=== PATIENT | female | born 1955 | race Caucasian/White ===

== ENCOUNTER 2017-10-09 17:19 | Emergency (ER) | payer BC ==
--- NOTE | 2017-10-09 18:00 | ERNOTE ---
Back Pain ER HPI Presenting Symptoms: other Time Seen by Provider: 10/09/17 17:31 Source: patient Exam Limitations: no limitations Immunizations: IMMUNIZATION HX Immunizations Up to Date No History of Influenza Vaccine Yes Hx Pneumococcal Vaccination Yes Allergies/Adverse Reactions: Allergies acetaminophen [From Percocet] Adverse Reaction (Intermediate, Verified 10/09/17 17:26) Nausea oxycodone HCl [From Percocet] Adverse Reaction (Intermediate, Verified 10/09/17 17:26) Nausea Home Medications: HOME MEDICATIONS metroNIDAZOLE [Flagyl] 250 mg PO BID 07/08/15 [Last Taken Unknown] traMADol HCL [Ultram] 50 mg PO QID PRN 07/08/15 [Last Taken 07/08/15] Nitrofurantoin/Nitrofuran Mac [Macrobid] 100 mg PO Q12H #14 cap 10/09/17 [Last Taken Unknown] Narrative: Patient started to have left flank pain about five days ago. She has chronic back pain but it usually hurt on the right side. She denies any new injury. no radiation of the pain, pain worse with movement and certain position, no change in pain. Intermittent pain in the epigastric area, not now Timing: Reports: intermittent Quality/Severity: Reports: moderate Location of pain: Reports: lower back Activities at Onset: Reports: none Recent Injury?: Reports: no Modifying Factors - (Improves): Reports: nothing Modifying Factors - (Worsens): Reports: movement to left Associated Symptoms: Denies: fever/chills, sweating, problems urinating, difficulty walking Prior Treament: Reports: similar symptoms before - usually on the right. Denies : recently seen Review of Systems - Review of Systems Constitutional: Absent: recent illness, fever ENT: Absent: nose congestion, sore throat Respiratory: Absent: shortness of breath Cardiology: Absent: chest pain Gastrointestinal/Abdominal: Present: See HPI, abdominal pain. Absent: nausea, vomiting, diarrhea, constipation Genitourinary: Present: no symptoms reported Musculoskeletal: Present: See HPI, back pain Neurological: Absent: weakness, numbness - Patient's Past Medical History Patient History - Medical: Chronic Pain, Kidney stone, Obesity Patient History - Cardiac/Respiratory: No pertinent hx Patient History - Cancer: No Hx of Cancer Patient History - Surgical Procedures: Cholecystectomy, , Gastric Bypass, Total Knee Replacement, Other Patient History - Other: None - Family History Mother Family History - Cardiac/Respiratory: Hypertension Father Family History - Medical: Family History - Cardiac/Respiratory: Cardiomyopathy, Hypertension - Social History Living Situations: home Abuse History: No History of abuse Psych History: No pertinent hx - Immunizations Immunizations Up to Date: No Hx Pneumococcal Vaccination: Yes History of Influenza Vaccine: Yes Physical Exam - Physical Exam General Appearance: Present: wd/wn, alert, no apparent distress, obese Neck: Present: normal inspection, nontender, supple, full range of motion Respiratory: Present: no respiratory distress, normal breath sounds, no accessory muscle use, lungs clear Cardiovascular/Chest: Present: regular rate, rhythm, no murmur Gastrointestinal/Abdominal: Present: normal bowel sounds, nondistended, soft, tenderness - mild epigastric Back Exam: Present: normal inspection, no vertebral tenderness, other - tender left lower ribs posterior Neurological Exam: Present: alert, oriented, normal mood/affect, no motor/ sensory deficits Skin Exam: Present: normal color, warm/dry ED Progress - Results and Orders Patient's Lab Results:: I have reviewed the patient's lab results. - Vital Signs Patient's Vital Signs:: I have reviewed the patient's vital signs. Vital Signs: Vital Signs 10/09/17 17:22 Temperature 36.7 C Pulse Rate 80 Respiratory 16 Rate Blood Pressure 158/98 O2 Sat by Pulse 98 Oximetry - X-Ray X-Ray #1 X-Ray: abdomen - fecal retention without obstruction Interpretation: Reviewed by me - Progress/Reassessment Chief Complaint: Back Pain Progress Note-Subjective: 10/09/17 20:00 discussed test results Departure Clinical Impression: UTI (urinary tract infection) Qualifiers: Urinary tract infection type: acute cystitis Hematuria presence: without hematuria Qualified Code(s): N30.00 - Acute cystitis without hematuria Constipation Qualifiers: Constipation type: unspecified constipation type Qualified Code(s): K59.00 - Constipation, unspecified - Departure Disposition: Home self-care Condition: Good Instructions: Constipation, Adult, [id number], Urinary Tract Infection, Adult , [id number] Additional Instructions: call your doctor for follow up Referrals: Ellie Jiang MD [Primary Care Provider] - Prescriptions: Nitrofurantoin/Nitrofuran Mac [Macrobid] 100 mg PO Q12H #14 cap
[2017-10-09 18:15] LABS: Hematocrit 40.8 % (37.0-47.0); Hemoglobin 13.1 gm/dL (12.5-16.0); Mean Cell Volume 92.7 fl (78-100); Mean Corpuscular Hemoglobin 29.8 pg (27-31); Mean Corpuscular Hgb Conc 32.1 g/dl (32-36); Mean Platelet Volume 10.5 fl (6.0-9.5); Neutrophil # 6.6 K/mm3 (1.3-6.0); Neutrophil % 77.4 % (42-75.0); Platelet Count 260 K/mm3 (150-450); Red Cell Distribution Width 13.2 % (11.5-14.0); White Blood Count 8.5 K/mm3 (4.0-10.5)
[2017-10-09 18:28] LABS: Albumin * 3.4 gm/dl (3.4-5.0); Anion Gap 10.2 mmol/L (6.8-13.8); BUN/Creatinine Ratio 15.3 (9.0-21.6); Bilirubin, Total 0.4 mg/dL (0.0-1.1); Ca. Corrected For Albumin 9.8 mg/dL (8.4-10.2); Calcium * 9.6 mg/dL (7.9-10.9); Carbon Dioxide 32.7 mmol/L (24-32.6); Potassium 3.9 mmol/L (3.4-4.6); Total Protein 8.2 gm/dL (6.2-8.2)
[2017-10-09 19:26] LABS: Urine Bilirubin Negative (NEGATIVE); Urine Ketone Negative (NEGATIVE); Urine Nitrite Negative (NEGATIVE); Urine Protein Negative (NEGATIVE); Urine Specific Gravity 1.015 SP.GR. (1.005-1.010); Urine Urobilinogen Normal (NORMAL)
[2017-10-09 19:50] LABS: Urine Appearance Clear; Urine Blood 5 /ul (NEGATIVE); Urine Color Yellow
[2017-10-09 19:51] LABS: Urine Bacteria 2+; Urine RBC 0-5 /hpf (0-5)
[2017-10-09] MEDS ORDERED: NITROFURANTOIN/NITROFURAN MAC 100 MG CAPSULE PO ONE (20:01)
[2017-10-09] MEDS ORDERED: NITROFURANTOIN/NITROFURAN MAC 100 MG CAPSULE ONE (20:11)
[2017-10-09 20:27] VITALS: BP 158/78
== END 2017-10-09 20:20 | disposition home or self-care (01) ==
LOC: ER 17:19
DX: N30.00 Acute cystitis without hematuria (principal); K59.00 Constipation, unspecified; Z87.442 Personal history of urinary calculi

== ENCOUNTER 2018-11-05 13:41 | Inpatient (IN) ==
[~2018-11-05 13:41] MED LIST: RINGER'S SOLUTION,LACTATED 1,000 ML IV PRN; VANCOMYCIN HCL 1 GM in DEXTROSE 5 % IN WATER 250 ML IV PRN
--- NOTE | 2018-11-05 19:12 | ANES ---
Anesthesia Pre Procedure Eval Vitals/Labs: Last Vital Signs Temp 38.6 C H 11/05/18 16:55 Pulse 122 H 11/05/18 16:55 Resp 20 11/05/18 16:55 BP 140/76 11/05/18 16:55 HOME MEDICATIONS apixaban 5 mg tablet 5 mg PO .COMPLEX #60 tab 08/11/18 [Last Taken 11/05/18 08:30] diltiazem CD 240 mg capsule,extended release 24 hr 240 mg PO DAILY #30 cap 08/11/18 [Last Taken 11/05/18 08:30] furosemide 40 mg tablet 40 mg PO DAILY #30 tab 08/11/18 [Last Taken 11/05/18 08:30] levothyroxine 50 mcg tablet 50 mcg PO DAILY #90 tab 08/19/18 [Last Taken 11/05/18 08:30] metoprolol tartrate 25 mg tablet 25 mg PO BID 09/10/18 [Last Taken 11/05/18 08:30] hydrocodone 7.5 mg-acetaminophen 325 mg tablet 1 tab PO .Q4-6H PRN #30 tab 10/20/18 [Last Taken 11/05/18 11:00] metroNIDAZOLE [Metronidazole] 250 mg PO TID 10/30/18 [Last Taken 10/29/18] Allergies/Adverse Reactions: Allergies Allergy/AdvReac Type Severity Reaction Status Date / Time hydromorphone [From Dilaudid] Allergy Severe Unknown, Verified 11/05/18 17:16 see note oxycodone HCl [From Percocet] AdvReac Mild Nausea Verified 11/05/18 17:16 - Planned Procedure Planned Procedure: rt shoulder arthroscopy I&D Medication List Reviewed:: Yes Allergies Verified: Yes Medical History (Last Reviewed 11/05/18 @ 19:09 by Antony Avila CRNA) Trigger thumb, right thumb (Acute) Onset Date: Unknown Shoulder pain, right (Acute) Onset Date: Unknown Heart murmur, systolic (Chronic) Onset Date: Unknown Cardiomyopathy (Chronic) Onset Date: Unknown Fatigue (Chronic) Onset Date: Unknown Edema (Chronic) Onset Date: Unknown Atrial fibrillation with RVR (Acute) Onset Date: Unknown Hypertension Hypothyroid Lives with spouse No history of alcohol use Non-tobacco user Wears glasses small bowel bacterial infection Surgical History (Last Reviewed 11/05/18 @ 19:09 by Antony Avila CRNA) History of total right knee replacement Onset Date: ~2010 [facility] Hx of appendectomy Onset Date: ~1981 Hx of section Onset Date: ~1976 2- 1981 Hx of cholecystectomy Onset Date: ~1983 [facility] Hx of gastric bypass Onset Date: 2002 [facility] Hx of hernia repair Onset Date: ~2003 [facility] Family History (Last Reviewed 11/05/18 @ 19:09 by Antony Avila CRNA) Father , at 65 Heart disease Cancer Mother Hypertension Brother Diabetes Heart disease Daughter Hypothyroidism Son Alive and well - Family Anesthesia History Family History:: no untoward family reactions to anesthesia, no familial bleeding tendencies, no family history of clotting disorders, no family history of premature - Airway/Neck/Teeth Within Normal Limits:: Yes Teeth Condition: intact Mallampatti Score: 2 Thyromental (T-M) distance: > 6 cm Mandibulo Hyoid distance: > 3 cm - Respiratory Respiratory Physical: lungs clear Smoking Status: Never smoker Discussed smoking cessation including day of surgery: No Sleep Apnea currently treated: No Sleep Apnea by current assessment: No Discussed Risks/Treatment of RUTH: No - Cardiovascular Tolerate Activity: Fair Heart Sounds: S1 & S2, Regular - Anesthesia Assessment and Plan ASA Class: PS, III, E Anesthesia Type Plan: General LMA
[2018-11-05] MEDS: PIPERACILLIN SODIUM/TAZOBACTAM 3.375 GM in DEXTROSE 5 % IN WATER 100 ML IV SCH ×2 (20:00)
[2018-11-05] MEDS ORDERED: BUPIVACAINE HCL 50 ML VIAL IJ ONE (20:37)
[2018-11-05] MEDS ORDERED: ONDANSETRON HCL/PF 2 MG/ML VIAL IV PRN (20:46)
[2018-11-05] MEDS ORDERED: RINGER'S SOLUTION,LACTATED 1,000 ML IV PRN (20:46)
[2018-11-05] MEDS ORDERED: diphenhydrAMINE HCL 50 MG/ML VIAL IV PRN (20:46)
[2018-11-05] MEDS ORDERED: MAG HYDROX/ALUMINUM HYD/SIMETH 30 ML UDC PO PRN (20:46)
[2018-11-05] MEDS ORDERED: MAGNESIUM HYDROXIDE 30 ML UDC PO PRN (20:46)
[2018-11-05] MEDS ORDERED: ACETAMINOPHEN 500 MG TABLET PO PRN (20:46)
[2018-11-05] MEDS ORDERED: MORPHINE SULFATE 4 MG/ML SYRG IV PRN (20:46)
[2018-11-05] MEDS ORDERED: ZOLPIDEM TARTRATE 5 MG TABLET PO PRN (20:46)
--- NOTE | 2018-11-05 20:53 | POSTOP NO ---
Date of Surgery: 11/05/18 Patient Tolerated the Procedure: Well Post Operative Diagnosis/Procedures: Alumni Relations Manager: Adán Heath PA-C Post-operative Diagnosis: Septic joint right shoulder Finding: Above Procedure: Arthroscopic Irrigation and debridement right shoulder, labral debridement right shoulder Estimated Blood Loss: Minimal Specimens: None
[2018-11-05] MEDS ORDERED: PIPERACILLIN SODIUM/TAZOBACTAM 3.375 GM in DEXTROSE 5 % IN WATER 100 ML IV SCH ×2 (21:00)
--- NOTE | 2018-11-05 21:02 | ANES ---
Post Anesthesia Discharge - Transfer of Care Transfer of Care handoff given to nurse: Yes - Discharge from PACU Discharge from PACU when meets criteria: Yes - Discharge to ASU Discharge to ASU-no complications/pt stable: Yes
--- NOTE | 2018-11-05 21:08 | ANES ---
Post Anesthesia Assessment - Vital Signs Vitals: Last Vital Signs Temp 37.5 C 11/05/18 21:02 Pulse 128 H 11/05/18 21:02 Resp 24 H 11/05/18 21:02 BP 156/114 H 11/05/18 21:02 Pulse Ox 100 11/05/18 21:02 Airway Patency: Normal - Mental Status Level Of Consciousness: Awake - Pain Level Pain Score: 0 - N/V Assessment Nausea/Vomiting Presence: None Dehydration:: No
[2018-11-05] MEDS: SENNOSIDES/DOCUSATE SODIUM 1 TAB TABLET PO SCH (23:13)
[2018-11-05] MEDS: METOPROLOL TARTRATE 25 MG TABLET PO SCH (23:13)
[2018-11-05] MEDS: HYDROcodone/ACETAMINOPHEN 1 EACH TABLET PO PRN (23:14)
[2018-11-06] MEDS: PIPERACILLIN SODIUM/TAZOBACTAM 3.375 GM in DEXTROSE 5 % IN WATER 100 ML IV SCH ×6 (01:35→17:52)
[2018-11-06] MEDS: HYDROcodone/ACETAMINOPHEN 1 EACH TABLET PO PRN ×3 (05:30→21:49)
[2018-11-06 05:31] LABS: Hematocrit 32.5 % (37.0-47.0); Hemoglobin 10.2 gm/dL (12.5-16.0); Mean Cell Volume 96.4 fl (78-100); Mean Corpuscular Hemoglobin 30.3 pg (27-31); Mean Corpuscular Hgb Conc 31.4 g/dl (32-36); Mean Platelet Volume 10.6 fl (8-12.5); Platelet Count 262 K/mm3 (150-450); Red Blood Count 3.37 M/mm3 (4.2-5.4); Red Cell Distribution Width 15.5 % (11.5-14.0); White Blood Count 14.5 K/mm3 (4.0-10.5)
[2018-11-06 05:40] LABS: Anion Gap 10.8 mmol/L (6.8-13.8); BUN/Creatinine Ratio 16.2 (9.0-21.6); Calcium * 8.7 mg/dL (7.9-10.9); Carbon Dioxide 33.1 mmol/L (24-32.6); Estimated Creat Clear 59.4; Potassium 3.9 mmol/L (3.4-4.6)
[2018-11-06] MEDS: LEVOTHYROXINE SODIUM 50 MCG TABLET PO SCH (06:52)
[2018-11-06] MEDS ORDERED: VANCOMYCIN HCL 1 GM in DEXTROSE 5 % IN WATER 250 ML IV SCH ×2 (07:30)
[2018-11-06] MEDS ORDERED: MORPHINE SULFATE 2 MG/ML DISP.SYRIN IV PRN (08:00)
[2018-11-06] MEDS: APIXABAN 5 MG TABLET PO SCH ×2 (08:34→20:03)
[2018-11-06] MEDS: DILTIAZEM HCL 240 MG CAP.SR.24H PO SCH (08:34)
[2018-11-06] MEDS: FUROSEMIDE 40 MG TABLET PO SCH (08:34)
[2018-11-06] MEDS: METOPROLOL TARTRATE 25 MG TABLET PO SCH ×2 (08:34→17:49)
[2018-11-06] MEDS ORDERED: VANCOMYCIN HCL 1.75 GM in DEXTROSE 5 % IN WATER 500 ML IV ONE ×2 (09:00)
--- NOTE | 2018-11-06 10:01 | OR ---
Operative Report - Dictated Report Narrative: Date: 11/05/2018 Physician: Zia Sow M.D. Loan Inspector: Adán Heath PA-C (provided an essential set of skilled, educated hands which assisted with transfer, positioning, prepping, draping, manipulation, retraction, placement of implants, irrigation, closure of wounds, and application of dressings all of which cannot be performed by the available surgical crew) Preoperative diagnosis: Septic right shoulder Postoperative diagnosis: Septic right Shoulder with degenerative labral tear Procedure: Right shoulder arthroscopy with irrigation debridement, labral debridement Anesthesia: General plus local Complications: None Estimated blood loss: Minimal Specimens: None Retained implants: None Drains: Medium Hemovac 1 Indications: Mrs. Daniel Is a 63 year-old female who has been followed in my clinic with complaints of shoulder pain consistent concern for septic arthrosis based on aspirate. Physical exam and aspirate were consistent with her complaints and concern for infection. The risks, benefits, and alternatives were discussed in clinic. The risks being , bleeding, infection, blood clots, nerve, tendon, ligament, blood vessel injury, persistent pain, arthrosis, stiffness, need for prolonged therapy, need for additional procedures, and persistent symptoms. Consent was obtained in the clinic. Procedure: After marking the correct extremity in the preoperative holding area, a timeout was performed in the operating room. IV antibiotics consisting of vancomycin and Zosyn prophylactically as we had already obtained a culture were administered prior to the procedure. A general anesthetic was induced by the nurse molecular modeler per my request. This was in the supine position, then the patient was transitioned to a beachchair position with all bony prominences well-padded, head in neutral, the nonoperative arm well supported, and the legs padded with SCDs in place. The operative shoulder was then prepped and draped in a standard sterile fashion. After marking out the bony landmarks, saline was infused into the joint through a posterior lateral portal site. A trevon incision was made, and the blunt trocar and cannula was introduced into the shoulder joint. An accessory portal was placed in the rotator cuff interval using a spinal needle for guidance. Upon initial evaluation, the biceps tendon showed significant tendinopathy and near complete tear. The middle glenohumeral ligament was intact. Subscapularis tendon was intact. The glenoid showed mild degenerative change. The humeral head articular surface showed mild degenerative change. The anterior labrum was frayed. The superior labrum was frayed. The pouch was unremarkable. The posterior labrum was unremarkable. The supraspinatus tendon was partially torn. The infraspinatus tendon was intact. Utilizing a shaver the joint was thoroughly irrigated. There was noted synovial inflammation and a partial labral and synovial debridement was performed. The biceps tendon was debrided. A total of 18 L was placed through the shoulder. A medium Hemovac was placed into the joint securing it to the skin through the anterior portal. Attention was then turned to the subacromial space. Subacromial bursectomy was performed utilizing the prior portals. The coracoacromial ligament was intact. The bursal side of the rotator cuff demonstrated no appreciable pathology. The acromial arch was unremarkable. There do not appear to be any sign of infection in the subacromial space and 3 L of irrigant were passed. The wounds were then thoroughly irrigated. The portal sites were closed with interrupted nylon. Dressings consisting of Xeroform, 4 x 4, ABD, and tape were applied. All sponge, needle, blade, and instrument counts were correct prior to closing the wounds. The patient was awoken and transferred to the postanesthesia care unit in stable condition.
--- NOTE | 2018-11-06 11:47 | PN ---
Subjective - Date and Time Seen Date: 11/06/18 Time: 11:45 Subjective Narrative: She reports her pain is significantly improved. No other significant concerns. She is sitting in the chair with the drain in place with her IV infusing her antibiotics. She denies any numbness or tingling or difficulty sleeping. Denies any nausea or vomiting. Objective - Vitals Vitals: Last Vital Signs Temp 36.9 C 11/06/18 10:20 Pulse 72 11/06/18 10:20 Resp 16 11/06/18 10:20 BP 111/64 11/06/18 10:20 Pulse Ox 95 11/06/18 10:20 - Abnormal Lab Findings Abnormal Lab Findings: Abnormal Lab Results 11/06/18 11/06/18 Range/Units 05:28 05:28 WBC 14.5 H (4.0-10.5) K/mm3 RBC 3.37 L (4.2-5.4) M/mm3 Hgb 10.2 L (12.5-16.0) gm/dL Hct 32.5 L (37.0-47.0) % MCHC 31.4 L (32-36) g/dl RDW 15.5 H (11.5-14.0) % Carbon Dioxide 33.1 H (24-32.6) mmol/L Random Glucose 171 H (70-110) mg/dL - Exam Exam Narrative: Right upper extremity: Dressings dry, drain in place draining bloody fluid, neurovascular intact throughout the right upper extremity to motor and sensation Constitutional: Present: Alert, Oriented x3 Assessment/Plan - Problems/Diagnosis (1) Septic joint of right shoulder region Problem: Acute Qualifiers: Septic arthritis organism: due to unspecified organism Qualified Code(s): M00.9 - Pyogenic arthritis, unspecified Narrative: We are awaiting cultures. She is placed on prophylactic vancomycin and Zosyn. Her white count is improved some the day. Plan is to transition to targeted antibiotics and discharge once cultures are final. (2) Atrial fibrillation with RVR Problem: Chronic (3) Urolithiasis Problem: Chronic (4) Cardiomyopathy Problem: Chronic Qualifiers: (5) Fatigue Problem: Chronic Qualifiers: (6) Heart murmur, systolic Problem: Chronic
[2018-11-06] MEDS: SENNOSIDES/DOCUSATE SODIUM 1 TAB TABLET PO SCH (20:03)
[2018-11-06] MEDS: VANCOMYCIN HCL 1 GM in DEXTROSE 5 % IN WATER 250 ML IV SCH ×2 (21:54)
[2018-11-07] MEDS: PIPERACILLIN SODIUM/TAZOBACTAM 3.375 GM in DEXTROSE 5 % IN WATER 100 ML IV SCH ×6 (01:08→16:04)
[2018-11-07] MEDS: HYDROcodone/ACETAMINOPHEN 1 EACH TABLET PO PRN ×4 (04:15→23:13)
[2018-11-07] MEDS: LEVOTHYROXINE SODIUM 50 MCG TABLET PO SCH (06:43)
[2018-11-07] MEDS ORDERED: VANCOMYCIN HCL LEVEL XX ONE ×2 (07:00→21:30)
[2018-11-07 07:28] LABS: Vancomycin Trough 13.6 mcg/mL (10.0-20.0)
[2018-11-07] MEDS: FUROSEMIDE 40 MG TABLET PO SCH (08:30)
[2018-11-07] MEDS: METOPROLOL TARTRATE 25 MG TABLET PO SCH ×2 (08:30→16:03)
[2018-11-07] MEDS: APIXABAN 5 MG TABLET PO SCH ×2 (09:00→20:16)
[2018-11-07] MEDS: DILTIAZEM HCL 240 MG CAP.SR.24H PO SCH (09:00)
--- NOTE | 2018-11-07 12:12 | PN ---
Subjective - Date and Time Seen Date: 11/07/18 Time: 12:10 Subjective Narrative: She reports minimal pain. No other significant concerns. She is sitting in the chair with the drain in place with her IV infusing her antibiotics. She denies any numbness or tingling or difficulty sleeping. Objective - Vitals Vitals: Last Vital Signs Temp 37.4 C 11/07/18 10:38 Pulse 100 11/07/18 10:38 Resp 18 11/07/18 10:38 BP 90/61 11/07/18 10:38 Pulse Ox 94 11/07/18 10:38 - Exam Exam Narrative: Right upper extremity: Drain in place, wounds benign, neurovascularly intact, dressings and place. Assessment/Plan - Problems/Diagnosis (1) Septic joint of right shoulder region Problem: Acute Qualifiers: Septic arthritis organism: due to unspecified organism Qualified Code(s): M00.9 - Pyogenic arthritis, unspecified Narrative: Awaiting final cultures. She's remained afebrile. We will continue IV antibiotics until tomorrow when cultures should be final and plan to discharge home. Her drain removed today. Repeat labs in the morning (2) Atrial fibrillation with RVR Problem: Chronic (3) Urolithiasis Problem: Chronic (4) Cardiomyopathy Problem: Chronic Qualifiers: (5) Fatigue Problem: Chronic Qualifiers: (6) Heart murmur, systolic Problem: Chronic
[2018-11-07] MEDS: VANCOMYCIN HCL 1 GM in DEXTROSE 5 % IN WATER 250 ML IV SCH ×4 (12:31→21:58)
[2018-11-07] MEDS: SENNOSIDES/DOCUSATE SODIUM 1 TAB TABLET PO SCH (20:15)
[2018-11-08] MEDS: PIPERACILLIN SODIUM/TAZOBACTAM 3.375 GM in DEXTROSE 5 % IN WATER 100 ML IV SCH ×4 (01:10→07:45)
[2018-11-08] MEDS: LEVOTHYROXINE SODIUM 50 MCG TABLET PO SCH (06:33)
[2018-11-08 07:25] LABS: Hematocrit 32.7 % (37.0-47.0); Hemoglobin 10.2 gm/dL (12.5-16.0); Mean Cell Volume 98.2 fl (78-100); Mean Corpuscular Hemoglobin 30.6 pg (27-31); Mean Corpuscular Hgb Conc 31.2 g/dl (32-36); Mean Platelet Volume 10.1 fl (8-12.5); Neutrophil # 7.2 K/mm3 (1.3-6.0); Neutrophil % 72.8 % (42-75.0); Platelet Count 257 K/mm3 (150-450); Red Blood Count 3.33 M/mm3 (4.2-5.4); Red Cell Distribution Width 15.8 % (11.5-14.0); White Blood Count 9.9 K/mm3 (4.0-10.5)
[2018-11-08 07:42] LABS: Anion Gap 4.5 mmol/L (6.8-13.8); BUN/Creatinine Ratio 18.2 (9.0-21.6); Calcium * 9.2 mg/dL (7.9-10.9); Carbon Dioxide 38.2 mmol/L (24-32.6); Estimated Creat Clear 57.1; Potassium 4.7 mmol/L (3.4-4.6)
[2018-11-08 07:43] LABS: CRP 14.5 mg/dL (0.0-0.9)
[2018-11-08] MEDS: DILTIAZEM HCL 240 MG CAP.SR.24H PO SCH (07:59)
[2018-11-08] MEDS: METOPROLOL TARTRATE 25 MG TABLET PO SCH (07:59)
[2018-11-08] MEDS: APIXABAN 5 MG TABLET PO SCH (07:59)
[2018-11-08] MEDS: FUROSEMIDE 40 MG TABLET PO SCH (07:59)
[2018-11-08] MEDS: HYDROcodone/ACETAMINOPHEN 1 EACH TABLET PO PRN (11:48)
[2018-11-08] MEDS: VANCOMYCIN HCL 1 GM in DEXTROSE 5 % IN WATER 250 ML IV SCH ×2 (11:49)
--- NOTE | 2018-11-08 13:06 | DS ---
(1) Septic joint of right shoulder region Problem: Acute Qualifiers: Septic arthritis organism: due to unspecified organism Qualified Code(s): M00.9 - Pyogenic arthritis, unspecified (2) Atrial fibrillation with RVR Problem: Chronic (3) Urolithiasis Problem: Chronic (4) Cardiomyopathy Problem: Chronic Qualifiers: (5) Fatigue Problem: Chronic Qualifiers: (6) Heart murmur, systolic Problem: Chronic Description of Stay: Mrs. Daniel was admitted after undergoing right shoulder arthroscopy for septic shoulder which was identified in clinic with a grossly purulent shoulder aspirate with a severely elevated white blood cell count aspirate. She tolerated this well. She was admitted to the floor for IV antibiotics and monitoring as we awaited cultures. At time of discharge cultures did not grow anything out. She was afebrile. Her white count improved but she still had an elevated ESR and CRP. Clinically she was feeling much better with improved pain and function of her shoulder. She is felt to be stable for discharge to home. We'll continue to watch her cultures and she'll be discharged on oral Keflex. She can use her shoulder as tolerated. Keep her wounds dry until follow-up. We will see her back in approximately 3-4 days. We will repeat labs at that time. Procedures Performed: see notes below List Procedures: Right shoulder arthroscopy with irrigation and debridement Results and Findings: Lab Pending Results 11/06/18 05:28: WBC 14.5 H, RBC 3.37 L, Hgb 10.2 L, Hct 32.5 L, MCV 96.4, MCH 30.3, MCHC 31.4 L, RDW 15.5 H, Plt Count 262, MPV 10.6 11/06/18 05:28: Sodium 138, Plasma Sodium 139, Potassium 3.9, Chloride 98, Carbon Dioxide 33.1 H, Anion Gap 10.8, BUN 12, Creatinine 0.74, Est GFR (Non-Af Amer) 84, BUN/Creatinine Ratio 16.2, Random Glucose 171 H, Calcium 8.7 11/07/18 07:15: Creatinine 0.83, Vancomycin Trough 13.6 11/08/18 07:18: WBC 9.9 D, RBC 3.33 L, Hgb 10.2 L, Hct 32.7 L, MCV 98.2, MCH 30.6, MCHC 31.2 L, RDW 15.8 H, Plt Count 257, MPV 10.1, Immature Gran % (Auto) 0.50 H, Immature Gran # (Auto) 0.05 H, Neutrophils % 72.8, Lymphocytes % 16.4 L, Monocytes % 7.7, Eosinophils % 2.0, Basophils % 0.6, Nucleated RBC % 0.0, Neutrophils # 7.2 H, Lymphocytes # 1.62, Monocytes # 0.8, Eosinophils # 0.2, Absolute Basophils 0.1 11/08/18 07:18: ESR 117 H 11/08/18 07:18: Sodium 137, Plasma Sodium 138, Potassium 4.7 H D, Chloride 99, Carbon Dioxide 38.2 H, Anion Gap 4.5 L, BUN 14, Creatinine 0.77, Est GFR (Non-Af Amer) 80, BUN/Creatinine Ratio 18.2, Random Glucose 165 H, Calcium 9.2, C- Reactive Prot, Quant 14.5 H Discharge Location: Home Disposition: Home self-care Condition: Good Discharge Activity: Activity as tolerated Discharge Diet: General/regular food Referrals: Jose Eduardo Aviles DO [Primary Care Provider] - Prescriptions (Any new or edited meds): Cephalexin Monohydrate [Keflex] 500 mg PO QID #40 cap HYDROcodone/ACETAMINOPHEN [Miller 5-325] 2 ea PO Q6H PRN #40 tab PRN Reason: Moderate Pain (Pain Scale 4-6) Complete Home Medications List: Complete Home Medication List: apixaban 5 mg tablet 5 mg PO .COMPLEX #60 tab 08/11/18 diltiazem CD 240 mg capsule,extended release 24 hr 240 mg PO DAILY #30 cap 08/11/18 furosemide 40 mg tablet 40 mg PO DAILY #30 tab 08/11/18 levothyroxine 50 mcg tablet 50 mcg PO DAILY #90 tab 08/19/18 metoprolol tartrate 25 mg tablet 25 mg PO BID 09/10/18 metroNIDAZOLE [Metronidazole] 250 mg PO TID 10/30/18 Cephalexin Monohydrate [Keflex] 500 mg PO QID #40 cap 11/08/18 HYDROcodone/ACETAMINOPHEN [Miller 5-325] 2 ea PO Q6H PRN #40 tab 11/08/18
[2018-11-08 13:43] VITALS: BP 111/73
[2018-11-13] MEDS ORDERED: metroNIDAZOLE 500 MG TABLET PO SCH (09:00)
== END 2018-11-08 13:46 | disposition home or self-care (01) | DRG 501 ==
LOC: CCFAL → MS 13:41
PROVIDERS: ADMIT Orthopaedic Surgery; ATTEND Orthopaedic Surgery
CPT/HCPCS: 36415; 73030; 80048; 80202; 82565; 85025; 85027; 85652; 86140; 87070; 87205; 89051; 97110; 97116; 97162; 97166